=== PATIENT | male | born 1985 | race Caucasian/White ===

== ENCOUNTER → 2018-05-15 | Outpatient (CLI) | payer MEDICARE, OTHER ==
[2018-05-15 12:20] LABS: HCT 44.1 % (39.0-53.0); HGB 14.8 gm/dL (13.0-17.5); MCH 29.3 pg (25.0-35.0); MCHC 33.6 g/dL (31.0-37.0); MCV 87.1 fL (80.0-100.0); Mean Platelet Volume 6.3; Platelet Count 424 k/uL (150-450); RBC 5.06 m/uL (4.30-5.90); RDW 13.7 % (11.5-15.5); WBC 7.8 k/uL (3.8-10.6)
[2018-05-15 16:28] LABS: T4, Free (Free Thyroxine) 1.1 ng/dL (0.80-1.80)
[2018-05-15 17:23] LABS: Vitamin D 25 Hydroxy 11.4 ng/mL (30.0-100.0)
== END | disposition home or self-care (01) ==
LOC: LABWHC1 10:58
PROVIDERS: ATTEND Nurse Practitioner Acute Care
DX: E55.9 Vitamin D deficiency, unspecified (principal); R53.83 Other fatigue; E03.9 Hypothyroidism, unspecified; D50.9 Iron deficiency anemia, unspecified
CPT/HCPCS: 36415; 82306; 82607; 83540; 83550; 84207; 84439; 84443; 84466; 84481; 85027

== ENCOUNTER 2018-08-30 14:58 | Emergency (ER) | payer MEDICARE, OTHER ==
[2018-08-30 15:10] VITALS: TEMP 98.2
[2018-08-30] MEDS ORDERED: KETOROLAC 30 MG/ML 1 ML VIAL IVP STA (16:02)
[2018-08-30] MEDS ORDERED: LORazepam 2 MG/ML INJ IV STA (16:02)
--- NOTE | 2018-08-30 16:05 | ED ---
ENT HPI - General Chief complaint: ENT Stated complaint: Post op locked jaw Time Seen by Provider: 08/30/18 15:30 Source: patient, RN notes reviewed Mode of arrival: ambulatory Limitations: no limitations - History of Present Illness Initial comments: This is a 32-year-old male who just had a vagal nerve stimulator placed yesterday at in [place] who states when he came out of anesthesia is jaw was stuck open. He states this is happened before when he goes under anesthesia. He was actually seen at [facility] last ev ening they were unable to relocate his jaw at that time. He was going to be transferred back down to [facility] that he did not want to go at the time he presents today with complaints of the same. Does complains of some right-sided jaw pain. He denies any trauma fevers chills nausea vomiting sweats or other symptoms. MD complaint: other - Related Data Previous Rx's Medication Instructions Recorded Ibuprofen 800 mg PO Q6HR PRN #20 tablet 08/30/18 Allergies Allergy/AdvReac Type Severity Reaction Status Date / Time Fish Containing Products Allergy Unknown Verified 08/30/18 15:10 iodine Allergy Unknown Verified 08/30/18 15:10 Review of Systems ROS Statement: Those systems with pertinent positive or pertinent negative responses have been documented in the HPI. ROS Other: All systems not noted in ROS Statement are negative. Past Medical History Past Medical History: Seizure Disorder History of Any Multi-Drug Resistant Organisms: None Reported Past Surgical History: Appendectomy Additional Past Surgical History / Comment(s): loop recorder, vagus nerve stimulator Past Psychological History: Depression Smoking Status: Current every day smoker Past Alcohol Use History: None Reported Past Drug Use History: None Reported General Exam - General Exam Comments Initial Comments: This is a well-developed well-nourished awake alert oriented 3 male Limitations: no limitations General appearance: alert, anxious, in distress Head exam: Present: atraumatic, normocephalic, normal inspection Eye exam: Present: normal appearance, PERRL, EOMI. Absent: scleral icterus, conjunctival injection, periorbital swelling ENT exam: Present: other (Patient's mouth is open consistent with a diagnosis of a mandibular subluxation. There is tenderness palpation of the right TMJ region no apparent step-off or crepitation.) Neck exam: Present: normal inspection, full ROM, other (No stridor JVD or bruits). Absent: tenderness, meningismus, lymphadenopathy Respiratory exam: Present: normal lung sounds bilaterally. Absent: respiratory distress, wheezes, rales, rhonchi, stridor Cardiovascular Exam: Present: regular rate, normal rhythm, normal heart sounds. Absent: systolic murmur, diastolic murmur, rubs, gallop, clicks GI/Abdominal exam: Present: soft, normal bowel sounds. Absent: distended, tenderness, guarding, rebound, rigid Extremities exam: Present: normal inspection, full ROM, normal capillary refill. Absent: tenderness, pedal edema, joint swelling, calf tenderness Neurological exam: Present: alert, oriented X3, CN II-XII intact Psychiatric exam: Present: normal mood, anxious Skin exam: Present: warm, dry, intact, normal color. Absent: rash Course Vital Signs 08/30/18 08/30/18 08/30/18 15:05 17:43 17:45 Temperature 98.2 F Pulse Rate 73 77 85 Respiratory 16 18 18 Rate Blood Pressure 133/82 136/83 132/82 O2 Sat by Pulse 100 100 100 Oximetry 08/30/18 17:53 Temperature Pulse Rate 103 H Respiratory 18 Rate Blood Pressure 138/76 O2 Sat by Pulse 100 Oximetry Procedures - Orthopedic Joint Reduction Joint #1 Consent Obtained: verbal consent Joint Reduction Location: other (Mandible) Analgesia: procedural sedation Amount of Anesthetic Used (mLs): 12 Technique Used: direct manipulation Post-Reduction Neuro Exam: intact Post-Reduction Vascular Exam: intact Post Reduction X-Ray Obtained: No (Not indicated clinical improvement back to normal movement of his mandible) Patient Tolerated Procedure: well - Procedural Sedation Procedural Sedation Start Time: 17:43 Procedural Sedation Stop Time: 16:10 Indications: fracture/dislocation reduction ASA Class: II Mallampati Airway Score: 2 Preparation: cardiac rehabilitation specialist applied, pulse oximeter, capnometry used, supplemental O2 applied, reversal agents at bedside, suction/airway equipment at bedside, IV secured IV Propofol Dose (mgs): 120 Complications: none Patient Tolerated Procedure: well Medical Decision Making - Medical Decision Making Patient is awake and alert he will be discharged. Mandible is back in place clinically. - Radiology Data Radiology results: report reviewed (I did review the imaging and report evidence of mandibular subluxation.), image reviewed Disposition Clinical Impression: Closed dislocation of mandible Disposition: HOME SELF-CARE Condition: Good Instructions (If sedation given, give patient instructions): Mandibular Dislocation (ED) Prescriptions: Ibuprofen 800 mg PO Q6HR PRN #20 tablet PRN Reason: Pain Is patient prescribed a controlled substance at d/c from ED?: No Referrals: None,Stated [Primary Care Provider] - 1-2 days
--- NOTE | 2018-08-30 16:53 | XR ---
EXAMINATION TYPE: XR mandible limited <4V DATE OF EXAM: 08/30/2018 COMPARISON: NONE HISTORY: Jaw pain. Lockjaw. TECHNIQUE: 2 views FINDINGS: Frontal and lateral views show mandible is open. Mandibular ring is intact. I see no fractu re. Mandibular condyles are intact. IMPRESSION: Open-mouth position. No fracture seen.
[2018-08-30] MEDS ORDERED: HYDROmorphone 1 MG/ML 1 ML SYRINGE IVP STA (17:12)
[2018-08-30] MEDS ORDERED: PROPOFOL 10 MG/ML 20 ML VIAL IV ONE (17:12)
[2018-08-30 17:51] VITALS: RESP 18
[2018-08-30 18:39] VITALS: BP 114/77; PULSE 88
== END 2018-08-30 18:49 | disposition home or self-care (01) ==
LOC: EC 14:58
DX: S03.01XA Dislocation of jaw, right side, initial encounter (principal); F17.200 Nicotine dependence, unspecified, uncomplicated; Z91.013 Allergy to seafood; Z91.048 Other nonmedicinal substance allergy status; Z97.8 Presence of other specified devices; X58.XXXA Exposure to other specified factors, initial encounter; Y92.239 Unspecified place in hospital as the place of occurrence of the external cause
CPT/HCPCS: 99283; 21480; 99152; 99153; 96374; 96375 ×2; 70100; J2060; J1885; J1170; J2704